=== PATIENT | female | born 1945 | race Caucasian/White ===

== ENCOUNTER 2023-03-09 10:06 | Inpatient (IN) | payer OTHER ==
[~2023-03-09] VITALS: Ht 160 cm; Wt 74.8 kg
[2023-03-09] MEDS ORDERED: DIVA125 PO ×2 (10:47)
[2023-03-09] MEDS ORDERED: ELIQUIS5 M2 PO ×2 (10:47)
[2023-03-09] MEDS ORDERED: FERSU300 PO ×2 (10:47)
[2023-03-09] MEDS ORDERED: LEVE500 PO ×2 (10:48)
[2023-03-09] MEDS ORDERED: GABA300 PO ×2 (10:48)
[2023-03-09] MEDS ORDERED: FURO40 PO ×2 (10:48)
[2023-03-09] MEDS ORDERED: MAGNESIUM OXID500 MG PO ×2 (10:49)
[2023-03-09] MEDS ORDERED: INSULANI ×2 (10:49)
[2023-03-09 10:50] LABS: Source, Urine Straight Cath
[2023-03-09] MEDS ORDERED: QUET100 PO ×2 (10:50)
[2023-03-09] MEDS ORDERED: METO50ER PO ×2 (10:50)
[2023-03-09] MEDS ORDERED: PANT40 PO ×2 (10:50)
[2023-03-09] MEDS ORDERED: POTCHL20ER PO ×2 (10:50)
[2023-03-09] MEDS ORDERED: SERT50 PO ×2 (10:51)
[2023-03-09] MEDS ORDERED: TRAZ50 PO ×2 (10:51)
[2023-03-09 10:52] LABS: Appearance, Urine Cloudy (Clear); Bilirubin, Urine Neg (Neg); Blood, Urine 3+ (Neg); Color, Urine Yellow (P-Yellow); Glucose Qualitative, Urine Neg (Neg); Ketones, Urine Neg (Neg); Leukocyte Esterase, Urine 3+ (Neg); Nitrite, Urine Neg (Neg); Protein, Urine 2+ (Neg); Urobilinogen, Urine NORM (Normal)
[2023-03-09] MEDS ORDERED: Ventolin/Prove6.7 GM INH ×2 (10:53)
[2023-03-09 11:01] LABS: Bacteria Many /hpf; Squamous Epithelial Cells Few /hpf (Few)
[2023-03-09 11:08] LABS: BASOPHILS ABSOLUTE AUTO 0.11 K/mm3 (0.00-0.23); BASOPHILS PERCENT AUTO 1 % (0-2); EOSINOPHILS ABSOLUTE AUTO 0.27 K/mm3 (0.00-0.68); EOSINOPHILS PERCENT AUTO 3 % (0-6); Hematocrit 48.6 % (33.0-51.0); Hemoglobin 15.1 g/dL (11.5-16.0); IMMATURE GRAN ABSOLUTE AUTO 0.02 K/mm3 (0.00-0.10); IMMATURE GRAN PERCENT AUTO 0 % (0-1); LYMPHOCYTES ABSOLUTE AUTO 1.81 K/mm3 (0.84-5.20); LYMPHOCYTES PERCENT AUTO 22 % (21-46); MONOCYTES ABSOLUTE AUTO 0.73 K/mm3 (0.16-1.47); MONOCYTES PERCENT AUTO 9 % (4-13); Mean Corpuscular HGB 24.5 pg (26.0-34.0); Mean Corpuscular HGB Conc 31.1 g/dL (31.5-36.5); Mean Corpuscular Volume 79 fL (80-100); Mean Platelet Volume 9.6 fL (9.1-12.4); NEUTROPHILS ABSOLUTE AUTO 5.41 K/mm3 (1.96-9.15); NEUTROPHILS PERCENT AUTO 65 % (41-73); Platelet Count 318 K/mm3 (150-400); RDW Coefficient Variation 17.3 % (11.7-14.2); RDW Standard Deviation 48.5 fL (35.1-46.3); Red Blood Cell Count 6.16 M/mm3 (3.80-5.20); White Blood Cell Count 8.35 K/mm3 (4.00-11.30)
[2023-03-09 11:23] LABS: U Amphetamine Screen Not Detected; U Barbituate Screen Not Detected; U Benzodiazapine Screen Not Detected; U Buprenorphine Screen Not Detected; U Cannabinoids Screen Not Detected; U Cocaine Screen Not Detected; U Methadone Screen Not Detected; U Methamphetamine Screen Not Detected; U Opiates Screen Not Detected; U Oxycodone Screen Not Detected; U Phencyclidine Screen Not Detected; U Propoxyphene Screen Not Detected
[2023-03-09 11:37] LABS: Chloride, Blood 100 mmol/L (98-108); Potassium, Blood 5.3 mmol/L (3.5-5.5); Sodium, Blood 136 mmol/L (136-145)
[2023-03-09 11:38] LABS: Albumin, Blood 3.9 g/dL (3.4-5.0); Anion Gap 8 mmol/L (6-16); Blood Urea Nitrogen 61 mg/dL (8-24); CO2, Blood 28 mmol/L (21-32); Calcium, Blood 9.9 mg/dL (8.5-10.1); Glucose, Blood 175 mg/dL (70-99)
[2023-03-09 11:39] LABS: Alanine Aminotransfer (ALT/SGP 16 U/L (12-78); Aspartate Aminotrans (AST/SGOT 30 U/L (12-37); Bilirubin, Total 0.5 mg/dL (0.1-1.0); Bun/Creatinine Ratio 24.5 (12.0-20.0); Creatinine, Blood 2.49 mg/dL (0.40-1.00); Globulin, Blood 4.1 g/dL (2.2-4.0); Glomerular Filtration Rate 20 (60-)
[2023-03-09 11:40] LABS: Alk Phos 115 U/L (50-136); Thyroid Stimulating Hormone 0.819 uIU/mL (0.360-4.800)
[2023-03-09 11:43] LABS: Valproic Acid 70.5 ug/mL (50.0-100.0)
[2023-03-09 11:47] LABS: Ethanol (Alcohol), Blood, Med <3 mg/dL
[2023-03-09 21:38] VITALS: BP 129/101
[2023-03-10 04:27] VITALS: BP 120/99
[2023-03-10 06:05] LABS: BASOPHILS ABSOLUTE AUTO 0.11 K/mm3 (0.00-0.23); BASOPHILS PERCENT AUTO 1 % (0-2); EOSINOPHILS ABSOLUTE AUTO 0.24 K/mm3 (0.00-0.68); EOSINOPHILS PERCENT AUTO 3 % (0-6); Hematocrit 41.7 % (33.0-51.0); IMMATURE GRAN ABSOLUTE AUTO 0.02 K/mm3 (0.00-0.10); IMMATURE GRAN PERCENT AUTO 0 % (0-1); LYMPHOCYTES ABSOLUTE AUTO 1.65 K/mm3 (0.84-5.20); LYMPHOCYTES PERCENT AUTO 20 % (21-46); MONOCYTES ABSOLUTE AUTO 0.64 K/mm3 (0.16-1.47); MONOCYTES PERCENT AUTO 8 % (4-13); Mean Corpuscular HGB 24.5 pg (26.0-34.0); Mean Corpuscular HGB Conc 31.2 g/dL (31.5-36.5); Mean Corpuscular Volume 79 fL (80-100); Mean Platelet Volume 9.4 fL (9.1-12.4); NEUTROPHILS ABSOLUTE AUTO 5.55 K/mm3 (1.96-9.15); NEUTROPHILS PERCENT AUTO 68 % (41-73); Platelet Count 248 K/mm3 (150-400); RDW Standard Deviation 47.8 fL (35.1-46.3); White Blood Cell Count 8.21 K/mm3 (4.00-11.30)
[2023-03-10 06:35] LABS: Albumin, Blood 3.4 g/dL (3.4-5.0); Bilirubin, Total 0.4 mg/dL (0.1-1.0); Bun/Creatinine Ratio 30.4 (12.0-20.0); Calcium, Blood 8.8 mg/dL (8.5-10.1); Creatinine, Blood 1.58 mg/dL (0.40-1.00); Globulin, Blood 3.3 g/dL (2.2-4.0); Magnesium, Blood 2.6 mg/dL (1.6-2.4); Phosphorus, Blood 3.5 mg/dL (2.5-4.9); Potassium, Blood 4.1 mmol/L (3.5-5.5); Total Protein, Blood 6.7 g/dL (6.4-8.2)
--- NOTE | 2023-03-10 07:11 | NUR ---
SHIFT SUMMARY/ADMISSION NOTE ASSUMED CARE OF PATIENT AT 21:30 FOLLOWING REPORT FROM ED. UNABLE TO ORIENT PATIENT TO UNIT DUE TO AMS. IS MOSTLY A/O TO SELF, CONFUSED/AGITATED, WITH INTERMITTENT BRIEF PERIODS OF CLARITY. BED ALARM ON AND FREQUENT ROUNDING FOR PATIENT SAFETY. PROVIDER NOTIFIED OF CONFUSION/AGITATION. NEW ORDERS RECEIVED FOR IM ZYPREXA, FIRST DOSE NOT EFFECTIVE, ADDITIONAL GIVEN PER ORDER, FAIR RESULTS, REDUCED AGITATION, CONTINUES TO BE IMPULSIVE, WILL NOT ALLOW TELE LEADS TO REMAIN ON. DUE TO FREQUENT PULLING AT IV AND TELE LINES, IMPULSIVE BEHAVIORS, LACK OF SAFETY AWARENESS, PATIENT TO BE MOVED TO HIGH ACUITY UNIT RM 348. INFORMED ONCOMING SHIFT OF PENDING TRANSFER.
[2023-03-10 08:02] VITALS: BP 120/86
--- NOTE | 2023-03-10 09:59 | NUR ---
TRANSFER NOTE- BEDSIDE REPORT COMPLETED WITH NIGHT RN, PER REPORT PT TO TRANSFER TO BACK [facility] BED WHEN AVAILABLE. PT TAKEN BY ADDITIONAL STAFF TO THE BACK [facility] PRIOR TO REPORT WITH RN. REPORT COMPLETED AT THE BEDSIDE. PT IN BED, CALLLING OUT, BEHAVIORAL ISSUES CONTINUE. RECIEVING RN IS AWARE. MORNING MEDS NOT GIVEN, ASSESSMENT NOT COMPLETED.
[2023-03-10 17:31] LABS: Hemoglobin 12.8 g/dL (11.5-16.0)
[2023-03-10 17:32] VITALS: BP 130/84
--- NOTE | 2023-03-10 20:04 | NUR ---
SHIFT SUMMARY: ARIELLE IS A&0X1-2. VSS, MEDIA MARKETING SPECIALIST REPORTED THAT PT'S HR INCREASED TO THE 150'S TWICE THIS SHIFT WHILE PT WAS ATTEMPTING TO GET OOB, REPORTED TO HOSPITALIST, PT RESTARTED ON HOME MEDICATION METOPROLOL. PT IS TOLERATING PO INTAKE WELL, SITTING UP FOR SAFETY, PILLS WHOLE, ONE AT A TIME IN APPLESAUCE. TELE AND BED ALARM IN PLACE. IV TO R FOREARM PATENT, SALINE LOCKED. PT PULLED IV'S X 2 THIS SHIFT. SHE HAS COMPLAINED OF BACK AND LEG PAIN, MEDICATED PER AUG WITH NO IMPROVEMENT THIS SHIFT. RN FROM [facility] (PT'S RESIDENCE) UPDATED THIS RN THAT PT HAD A LUMBAR FRACTURE AT HER PREVIOUS ADMISSION AT ANOTHER HOSPITAL AND HAD BEEN RECEIVING OXYCODONE 5 MG THERE. HOWEVER, NO ORDER WAS GIVEN TO [facility] ON DISCHARGE. K-PAD PROVIDED FOR COMFORT. ATTENDS IN PLACE FOR INCONTINECE, PT DID UTILIZE THE BED ARMIJO LATE THIS SHIFT. SHE IS LYING IN BED WITH THE CALL LIGHT IN REACH. REPORT WAS GIVEN TO ROOF TRUSS BUILDER RN.
[2023-03-10 20:23] VITALS: BP 95/76
[2023-03-11 00:33] LABS: BASOPHILS ABSOLUTE AUTO 0.06 K/mm3 (0.00-0.23); BASOPHILS PERCENT AUTO 1 % (0-2); EOSINOPHILS ABSOLUTE AUTO 0.18 K/mm3 (0.00-0.68); EOSINOPHILS PERCENT AUTO 3 % (0-6); Hematocrit 42.7 % (33.0-51.0); IMMATURE GRAN ABSOLUTE AUTO 0.01 K/mm3 (0.00-0.10); IMMATURE GRAN PERCENT AUTO 0 % (0-1); LYMPHOCYTES ABSOLUTE AUTO 1.16 K/mm3 (0.84-5.20); LYMPHOCYTES PERCENT AUTO 20 % (21-46); MONOCYTES ABSOLUTE AUTO 0.42 K/mm3 (0.16-1.47); MONOCYTES PERCENT AUTO 7 % (4-13); Mean Corpuscular HGB 24.3 pg (26.0-34.0); Mean Corpuscular HGB Conc 30.4 g/dL (31.5-36.5); Mean Corpuscular Volume 80 fL (80-100); NEUTROPHILS ABSOLUTE AUTO 4.12 K/mm3 (1.96-9.15); NEUTROPHILS PERCENT AUTO 69 % (41-73); Platelet Count 220 K/mm3 (150-400); RDW Coefficient Variation 16.8 % (11.7-14.2); RDW Standard Deviation 48.5 fL (35.1-46.3); Red Blood Cell Count 5.36 M/mm3 (3.80-5.20); White Blood Cell Count 5.95 K/mm3 (4.00-11.30)
[2023-03-11 00:49] LABS: Albumin, Blood 3.4 g/dL (3.4-5.0); Anion Gap 5 mmol/L (6-16); Blood Urea Nitrogen 36 mg/dL (8-24); Bun/Creatinine Ratio 26.1 (12.0-20.0); CO2, Blood 27 mmol/L (21-32); Chloride, Blood 108 mmol/L (98-108); Creatinine, Blood 1.38 mg/dL (0.40-1.00); Glomerular Filtration Rate 40 (60-); Glucose, Blood 197 mg/dL (70-99); Magnesium, Blood 2.1 mg/dL (1.6-2.4); Phosphorus, Blood 2.6 mg/dL (2.5-4.9); Potassium, Blood 4.2 mmol/L (3.5-5.5); Sodium, Blood 140 mmol/L (136-145)
--- NOTE | 2023-03-11 04:19 | NUR ---
SHIFT SUMMARY ARIELLE IS ALERT AND ONLY ORIENTED TO SELF THIS SHIFT. HE HAS BEEN LABILE AND IMPULSIVE, AFTER SEVERAL ATTEMPTS AT REDIRECTING HER, A PREMA VEST RESTRAINT WAS PLACED TO PREVENT FURTHER ATTEMPTS TO GET OUT OF BED. PATIENT HAS BEEN AWAKE MOST OF THE SHIFT WITH INTERMITTENT HALLUCINATIONS AND FREQUENT CRYING. HOSPITALIST CALLED IN REGARD TO UNCONTROLLED PATIENT PAIN, TWO DOSE PRN PO OXYCODONE ORDERED, ONE DOSE GIVEN TO LIMITED EFFECT. NO ACUTE CHANGES TO CONDITION TONIGHT. PT IS RESTING IN BED RESTRAINED BY PREMA WITH THE CALL LIGHT IN REACH AND THE BED ALARM ON.
[2023-03-11 05:16] VITALS: BP 156/99
[2023-03-11 07:34] VITALS: BP 138/92
[2023-03-11 08:56] LABS: Hematocrit 42.5 % (33.0-51.0); Hemoglobin 13.1 g/dL (11.5-16.0)
[2023-03-11 16:06] VITALS: BP 143/55
[2023-03-11] MEDS ORDERED: LACT PO ×2 (16:55)
[2023-03-11] MEDS ORDERED: CEPH500 PO ×2 (16:55)
--- NOTE | 2023-03-11 16:58 | NUR ---
SHIFT SUMMARY: PATIENT IS AWAKE, ALERT, AND ORIENTED TO SELF ONLY. PATIENT DENIES CP/PRESSURE, SOB, N/V AND DIZZINESS. ON TELE, A-FLUTTER HR IN THE 110'S BPM. RA. PATIENT IS INCONTINENCE OF BLADDER, PABLO CARE AND ATTENDS CHANGED T/O SHIFT. PREMA VEST RESTRAINT WSA DC'D AT 1400. PATIENT IS CALM, PLEASANT, COOPERATIVE c CARE AND REDIRECTABLE. PATIENT IS EATING AND DRINKING WELL. RECEIVED SCHEDULED IV ABX AND PO MEDS PER EMAR. VITAL SIGNS REVIEWED. BED ALARM ON FOR SAFETY. CALL LIGHT IN REACH. PATIENT IS DISCHARGE TO [facility]. [facility] INSTRU[facility]. EDUCATE PATIENT REGARDING ADMITTING DX'S OF SEPSIS D/T UTI, S/S, TX, PABLO CARE, MEDS TO HOME AND SELF CARE. PATIENT VERBALIZED UNDERSTANDING AND NO FURTHER QUESTIONS. RX WAS FAXED TO [facility] IN [place]. RIDES WAS ARRANGED BY [facility] SEWING MACHINE OPERATOR PAPER BAGS AND EXPECTED GOLF STARTER AND RANGER TIME AT 1830, 03/11/23, PER [employer], ANITA. PATIENT IN BED AWAITING FOR RIDES.
== END 2023-03-11 19:30 | DRG 871 ==
LOC: ER 10:06 → ERHOLD 15:30 → MEDS 15:30
PROVIDERS: Family Medicine; Student in an Organized Health Care Education/Training Program; ADMIT Internal Medicine
DX: A41.9 Sepsis, unspecified organism (principal); G93.41 Metabolic encephalopathy; N39.0 Urinary tract infection, site not specified; N17.9 Acute kidney failure, unspecified; I48.91 Unspecified atrial fibrillation; Z66 Do not resuscitate; N18.9 Chronic kidney disease, unspecified; E11.22 Type 2 diabetes mellitus with diabetic chronic kidney disease; F03.90 Unspecified dementia, unspecified severity, without behavioral disturbance, psychotic disturbance, mood disturbance, and anxiety; B96.20 Unspecified Escherichia coli [E. coli] as the cause of diseases classified elsewhere; G89.4 Chronic pain syndrome; G40.909 Epilepsy, unspecified, not intractable, without status epilepticus; K21.9 Gastro-esophageal reflux disease without esophagitis; Z88.8 Allergy status to other drugs, medicaments and biological substances; Z79.899 Other long term (current) drug therapy; Z79.51 Long term (current) use of inhaled steroids; Z79.01 Long term (current) use of anticoagulants; Z79.4 Long term (current) use of insulin
CPT/HCPCS: 36415; 51701; 80053; 80069; 80164; 80177; 81001; 82140; 82947; 83605; 83735; 84100; 84443; 85014; 85018; 85025; 87077; 87086; 87186; 93005; 93010; 94760; 96361-59; 96372-59; 96374-59; 99285-25; A9270; J0696; J1650; J1815; J7030

== ENCOUNTER 2023-03-16 10:14 | Emergency (ER) | payer OTHER ==
[~2023-03-16] VITALS: Ht 177.8 cm; Wt 95.2 kg
[~2023-03-16 10:14] MED LIST: CEPH500 PO; DIVA125 PO; ELIQUIS5 M2 PO; FERSU300 PO; FURO40 PO; GABA300 PO; INSULANI; LACT PO; LEVE500 PO; MAGNESIUM OXID500 MG PO; METO50ER PO; PANT40 PO; POTCHL20ER PO; QUET100 PO; SERT50 PO; TRAZ50 PO; Ventolin/Prove6.7 GM INH
[2023-03-16 11:17] LABS: BASOPHILS ABSOLUTE AUTO 0.08 K/mm3 (0.00-0.23); BASOPHILS PERCENT AUTO 1 % (0-2); EOSINOPHILS ABSOLUTE AUTO 0.27 K/mm3 (0.00-0.68); EOSINOPHILS PERCENT AUTO 5 % (0-6); Hematocrit 43.6 % (33.0-51.0); Hemoglobin 13.4 g/dL (11.5-16.0); IMMATURE GRAN ABSOLUTE AUTO 0.01 K/mm3 (0.00-0.10); IMMATURE GRAN PERCENT AUTO 0 % (0-1); LYMPHOCYTES ABSOLUTE AUTO 1.21 K/mm3 (0.84-5.20); LYMPHOCYTES PERCENT AUTO 20 % (21-46); MONOCYTES ABSOLUTE AUTO 0.61 K/mm3 (0.16-1.47); MONOCYTES PERCENT AUTO 10 % (4-13); Mean Corpuscular HGB 24.5 pg (26.0-34.0); Mean Corpuscular HGB Conc 30.7 g/dL (31.5-36.5); Mean Corpuscular Volume 80 fL (80-100); Mean Platelet Volume 10.1 fL (9.1-12.4); NEUTROPHILS ABSOLUTE AUTO 3.85 K/mm3 (1.96-9.15); NEUTROPHILS PERCENT AUTO 64 % (41-73); Platelet Count 192 K/mm3 (150-400); RDW Coefficient Variation 17.3 % (11.7-14.2); RDW Standard Deviation 49.9 fL (35.1-46.3); Red Blood Cell Count 5.47 M/mm3 (3.80-5.20); White Blood Cell Count 6.03 K/mm3 (4.00-11.30)
[2023-03-16 11:47] LABS: Bun/Creatinine Ratio 18.1 (12.0-20.0); Creatinine, Blood 1.66 mg/dL (0.40-1.00); Potassium, Blood 4.6 mmol/L (3.5-5.5)
[2023-03-16 13:43] VITALS: BP 142/78
== END 2023-03-16 13:49 | disposition home or self-care (01) ==
LOC: ER 10:14
PROVIDERS: Emergency Medicine
DX: I95.9 Hypotension, unspecified (principal); N39.0 Urinary tract infection, site not specified; F03.90 Unspecified dementia, unspecified severity, without behavioral disturbance, psychotic disturbance, mood disturbance, and anxiety; G89.4 Chronic pain syndrome; E11.22 Type 2 diabetes mellitus with diabetic chronic kidney disease; N18.9 Chronic kidney disease, unspecified; Z88.8 Allergy status to other drugs, medicaments and biological substances; Z79.01 Long term (current) use of anticoagulants; Z79.51 Long term (current) use of inhaled steroids; Z79.899 Other long term (current) drug therapy; Z79.4 Long term (current) use of insulin
CPT/HCPCS: 80048; 85025; 99285

== ENCOUNTER 2023-03-17 13:55 | Emergency (ER) | payer OTHER ==
[~2023-03-17] VITALS: Ht 152.4 cm; Wt 72.6 kg
[2023-03-17 14:21] LABS: BASOPHILS ABSOLUTE AUTO 0.06 K/mm3 (0.00-0.23); BASOPHILS PERCENT AUTO 1 % (0-2); EOSINOPHILS ABSOLUTE AUTO 0.19 K/mm3 (0.00-0.68); EOSINOPHILS PERCENT AUTO 4 % (0-6); Hematocrit 42.5 % (33.0-51.0); Hemoglobin 13.1 g/dL (11.5-16.0); IMMATURE GRAN ABSOLUTE AUTO 0.02 K/mm3 (0.00-0.10); IMMATURE GRAN PERCENT AUTO 0 % (0-1); LYMPHOCYTES ABSOLUTE AUTO 1.11 K/mm3 (0.84-5.20); LYMPHOCYTES PERCENT AUTO 24 % (21-46); MONOCYTES ABSOLUTE AUTO 0.46 K/mm3 (0.16-1.47); MONOCYTES PERCENT AUTO 10 % (4-13); Mean Corpuscular HGB 24.4 pg (26.0-34.0); Mean Corpuscular HGB Conc 30.8 g/dL (31.5-36.5); Mean Corpuscular Volume 79 fL (80-100); Mean Platelet Volume 9.2 fL (9.1-12.4); NEUTROPHILS ABSOLUTE AUTO 2.71 K/mm3 (1.96-9.15); NEUTROPHILS PERCENT AUTO 60 % (41-73); Platelet Count 181 K/mm3 (150-400); RDW Coefficient Variation 17.2 % (11.7-14.2); RDW Standard Deviation 49.7 fL (35.1-46.3); Red Blood Cell Count 5.36 M/mm3 (3.80-5.20); White Blood Cell Count 4.55 K/mm3 (4.00-11.30)
[2023-03-17 14:45] LABS: Albumin, Blood 3.2 g/dL (3.4-5.0); Bilirubin, Total 0.3 mg/dL (0.1-1.0); Bun/Creatinine Ratio 18.7 (12.0-20.0); Calcium, Blood 8.9 mg/dL (8.5-10.1); Creatinine, Blood 1.5 mg/dL (0.40-1.00); Globulin, Blood 3.3 g/dL (2.2-4.0); Potassium, Blood 4.2 mmol/L (3.5-5.5); Total Protein, Blood 6.5 g/dL (6.4-8.2)
[2023-03-17 15:00] VITALS: BP 104/77
== END 2023-03-17 20:53 | disposition home or self-care (01) ==
LOC: ER 13:55
PROVIDERS: Student in an Organized Health Care Education/Training Program
DX: F03.90 Unspecified dementia, unspecified severity, without behavioral disturbance, psychotic disturbance, mood disturbance, and anxiety (principal); R45.1 Restlessness and agitation; E11.22 Type 2 diabetes mellitus with diabetic chronic kidney disease; N18.9 Chronic kidney disease, unspecified; G40.909 Epilepsy, unspecified, not intractable, without status epilepticus; Z88.8 Allergy status to other drugs, medicaments and biological substances
CPT/HCPCS: 80053; 85025; 99285; A9270

== ENCOUNTER 2023-03-30 13:29 | Inpatient (IN) | payer MEDICARE, OTHER ==
[~2023-03-30] VITALS: Ht 154.9 cm; Wt 77.8 kg
[2023-03-30 14:20] LABS: Source, Urine Straight Cath
[2023-03-30 14:28] LABS: Appearance, Urine Hazy (Clear); Bilirubin, Urine Neg (Neg); Blood, Urine 3+ (Neg); Color, Urine Yellow (P-Yellow); Glucose Qualitative, Urine Neg (Neg); Ketones, Urine Neg (Neg); Leukocyte Esterase, Urine 3+ (Neg); Nitrite, Urine Pos (Neg); Protein, Urine Neg (Neg); Urobilinogen, Urine NORM (Normal)
[2023-03-30 14:59] LABS: Bacteria Many /hpf; Squamous Epithelial Cells Not Seen /hpf (Few); White Blood Cells, Urine 25-50 /hpf (0-5)
[2023-03-30] MEDS ORDERED: CEFP200 PO ×2 (15:17→17:47)
[2023-03-30 16:25] LABS: BASOPHILS ABSOLUTE AUTO 0.11 K/mm3 (0.00-0.23); BASOPHILS PERCENT AUTO 2 % (0-2); EOSINOPHILS ABSOLUTE AUTO 0.13 K/mm3 (0.00-0.68); EOSINOPHILS PERCENT AUTO 2 % (0-6); Hematocrit 45.2 % (33.0-51.0); Hemoglobin 14.2 g/dL (11.5-16.0); IMMATURE GRAN ABSOLUTE AUTO 0.01 K/mm3 (0.00-0.10); IMMATURE GRAN PERCENT AUTO 0 % (0-1); LYMPHOCYTES ABSOLUTE AUTO 1.62 K/mm3 (0.84-5.20); LYMPHOCYTES PERCENT AUTO 24 % (21-46); MONOCYTES ABSOLUTE AUTO 0.49 K/mm3 (0.16-1.47); MONOCYTES PERCENT AUTO 7 % (4-13); Mean Corpuscular HGB 24.7 pg (26.0-34.0); Mean Corpuscular HGB Conc 31.4 g/dL (31.5-36.5); Mean Corpuscular Volume 79 fL (80-100); Mean Platelet Volume 9.1 fL (9.1-12.4); NEUTROPHILS ABSOLUTE AUTO 4.49 K/mm3 (1.96-9.15); NEUTROPHILS PERCENT AUTO 66 % (41-73); Platelet Count 229 K/mm3 (150-400); RDW Coefficient Variation 18.8 % (11.7-14.2); RDW Standard Deviation 50.9 fL (35.1-46.3); Red Blood Cell Count 5.75 M/mm3 (3.80-5.20); White Blood Cell Count 6.85 K/mm3 (4.00-11.30)
[2023-03-30] MEDS ORDERED: NYSTOP15 GM TOP (16:37)
[2023-03-30] MEDS ORDERED: Cyclobenzaprine5 MG PO (16:38)
[2023-03-30] MEDS ORDERED: DULCOLAX400 MG/5 M PO (16:39)
[2023-03-30] MEDS ORDERED: Acetaminophen325 M1 PO (16:40)
[2023-03-30] MEDS ORDERED: SYMBICORT 160-4.6 GM INH (16:42)
[2023-03-30 16:51] LABS: Albumin, Blood 3.6 g/dL (3.4-5.0); Bilirubin, Total 0.3 mg/dL (0.1-1.0); Bun/Creatinine Ratio 25.4 (12.0-20.0); Calcium, Blood 9.4 mg/dL (8.5-10.1); Creatinine, Blood 1.93 mg/dL (0.40-1.00); Globulin, Blood 3.6 g/dL (2.2-4.0); Potassium, Blood 4.4 mmol/L (3.5-5.5); Total Protein, Blood 7.2 g/dL (6.4-8.2)
[2023-03-30] MEDS ORDERED: METF500 PO (16:52)
[2023-03-30] MEDS ORDERED: LOPE2C PO (16:53)
[2023-03-30] MEDS ORDERED: LEVE500 PO ×2 (16:54→16:58)
[2023-03-30] MEDS ORDERED: SENN187 PO (16:56)
[2023-03-30] MEDS ORDERED: ONDA4ODT MM (16:59)
[2023-03-30] MEDS ORDERED: PROC5 PO (17:02)
[2023-03-30] MEDS ORDERED: OXYC5 PO (17:45)
[2023-03-30 20:33] LABS: Base Excess Venous 6.2 mmol/L; Bicarbonate Venous 27.8 mmol/L (24.0-30.0); PCO2 Venous 54.1 mmHg (38-42); pH Blood Venous 7.37 (7.34-7.37)
[2023-03-30 20:51] LABS: SARS-Cov-2 (COVID-19) PCR, MMC NEGATIVE (NEGATIVE)
[2023-03-30 21:35] VITALS: BP 114/93
--- NOTE | 2023-03-30 21:58 | NUR ---
ASSUMPTION OF CARE/TRANSFER NOTE PT TRANSFERRED TO PCU AT 2114. PT NOT OPENING EYES. RESPONDS OCCASIONALLY TO QUESTIONS. YELLING OUT. PT PARANOID ABOUT THIS RN GIVING WATER. REFUSED TO TAKE PO PILLS. SBP 110'S AT THIS TIME. NS INFUSING PER EMAR. PT BEGAN HITTING AND KICKING STAFF. MITTS PLACED ON PATIENT, HOWEVER, PT BROKE MITTS AFTER 2 MINUTES OF HAVING THEM ON. PT PULLING AT LINES. CALL PLACED TO MD BEAL REGARDING AGGITATION. MD BEAL WITH ORDER FOR IM ZYPREXA; GIVEN PER EMAR. PT CONTINUES TO PULL AT LINES, YELL OUT, AND BE PHYSICAL WITH STAFF AT THIS TIME. 1 ON 1 SITTER AT BEDSIDE. OTHER VITALS STABLE. PT ON RA. BED IN LOWEST POSITION AND CALL LIGHT WITHIN REACH.
[2023-03-30 22:03] VITALS: BP 145/106
[2023-03-30 23:00] VITALS: BP 106/39
[2023-03-30 23:14] VITALS: BP 112/81
[2023-03-31] VITALS (90 sets, daily range): BP systolic 61–182; BP diastolic 33–142
--- NOTE | 2023-03-31 01:15 | NUR ---
PATIENT UPDATE PATIENT CONTINUED TO KICK/HIT STAFF MEMBERS, PULL AT LINES, AND ATTEMPT TO GET OOB, AND INTERFERING WITH CARE. PT NOT DIRECTABLE. PT PLACED IN SOFT BILATERAL WRIST RESTRAINTS AT 2330, CALL PLACED TO MD BEAL AT 2339 FOR ORDER. MD ALSO WITH ORDER FOR ANOTHER 5MG IM DOSE OF ZYPREXA; GIVEN PER EMAR. SINCE THAT ADMINISTRATION PT HAS ALSO BEEN GIVEN ANOTHER DOSE OF IV HALDOL PER EMAR. PT CONTINUES TO YELL, WITH CONTINUED ABOVE LISTED BEHAVIORS. CONTINUES TO NOT BE REDIRECTABLE. RESTRAINTS REMAIN IN PLACE. SITTER AT BEDSIDE. VITALS REMAIN STABLE. PT BLADDER SCANNED SHOWING 77MLS OF URINE. PUREWICK REMAINS IN PLACE. BED IN LOWEST POSITION, BED ALARM ON, CALL LIGHT WITHIN REACH.
--- NOTE | 2023-03-31 02:56 | NUR ---
PATIENT UPDATE 0130: THIS RN CALLED MD BEAL TO REPORT THAT PT HAD BEEN MEDICATED AGAIN WITH IM ZYPREXA AND IV HALDOL WITH NO RELIEF FOR PATIENT. PATIENT CONTINUES TO YELL AND THRASH IN BED. THIS RN REPORTED THAT PATIENT APPEARED TO BE IN PAIN AND REPORTED TO MD BEAL WITH WHAT PATIENT TAKES AT HOME. MD BEAL WITH ORDER FOR IV DILAUDID 0150: THIS RN DILUTED WITH NS SYRINGE AND GAVE OVER 2 MINUTES AT APPROXIMATELY 0150. AT THIS TIME VITALS WERE STABLE. PT REPORTED IMMEDIATE RELIEF OF PAIN. AFTER ANOTHER 1-2 MINUTES PATIENT'S SPO2 DROPPED TO 70-80'S. PT'S SBP DROPPED TO 50-60'S. PT STILL RESPONDING TO VERBAL STIMULI BUT LETHARGIC. PT PLACED ON 4L VIA NC. PT NOT ON TELE BUT SPO2 SHOWING HR 80'S. 0206: NARCAN WAS ADMINISTERRED PER EMAR AT 0206. PT BECAME ALERT QUICKLY AFTER ADMINISTRATION AND BEGAN YELLING SHE PREVIOUSLY WAS; SEE PREVIOUS NOTES. SBP 120-130'S. SPO2 >92% ON 2L VIA NC. RR EVEN AND UNLABORED. HR REMAINS UNCHANGED. CALL PLACED TO MD BEAL TO REPORT EVENT. MD BEAL WITH ORDERS FOR LIDOCAINE PATCH FOR BACK PAIN AND TELEMETRY TO BE PLACED ON PATIENT. MD BEAL VERBALIZED TO CONTINUE NARCAN NEEDED. 0256: AT TIME OF WRITING THIS NOTE PT IS LETHARGIC BUT RESPONDING TO VERBAL STIMULI. SPO2 >92% ON 2L VIA NC. RR 12-14. SBP 90-100'S. MAP >65. NS INFUSING PER EMAR. PT NOW ON TELE, SHOWING AFIB WITH HR 70-80'S; PT HAS HX OF AFIB. NARCAN AT BEDSIDE. PT REMAINS IN BILATERAL SOFT WRIST RESTRAINTS. SEE ASSESSMENTS. BED IN LOWEST POSITION AND CALL LIGHT WITHIN REACH.
--- NOTE | 2023-03-31 03:45 | NUR ---
NARCAN PATIENT GIVEN SECOND DOSE OF NARCAN AT APPROXIMATELY 0320. SBP 70'S PRIOR TO ADMINISTRATION. PT CONTINUES TO RESPOND TO VERBAL STIMULI BUT IS LETHARGIC. AFTER ADMINISTRATION SBP 140-150'S. AFIB ON MONITOR WITH HR 90'S. SPO2 >92% ON 2L VIA NC. PT MOVING ALL EXTREMETIES AND MOANING. MOVING SELF IN BED. RESTRAINTS REMAIN IN PLACE. BED IN LOWEST POSITION, BED ALARM ON, CALL LIGHT WITHIN REACH. SITTER IN ROOM.
[2023-03-31 04:14] LABS: BASOPHILS ABSOLUTE AUTO 0.13 K/mm3 (0.00-0.23); BASOPHILS PERCENT AUTO 2 % (0-2); EOSINOPHILS ABSOLUTE AUTO 0.14 K/mm3 (0.00-0.68); EOSINOPHILS PERCENT AUTO 2 % (0-6); Hematocrit 41.6 % (33.0-51.0); IMMATURE GRAN ABSOLUTE AUTO 0.02 K/mm3 (0.00-0.10); IMMATURE GRAN PERCENT AUTO 0 % (0-1); LYMPHOCYTES ABSOLUTE AUTO 2.06 K/mm3 (0.84-5.20); LYMPHOCYTES PERCENT AUTO 30 % (21-46); MONOCYTES ABSOLUTE AUTO 0.55 K/mm3 (0.16-1.47); MONOCYTES PERCENT AUTO 8 % (4-13); Mean Corpuscular HGB 24.9 pg (26.0-34.0); Mean Corpuscular HGB Conc 31.3 g/dL (31.5-36.5); Mean Corpuscular Volume 80 fL (80-100); Mean Platelet Volume 9.3 fL (9.1-12.4); NEUTROPHILS ABSOLUTE AUTO 3.87 K/mm3 (1.96-9.15); NEUTROPHILS PERCENT AUTO 57 % (41-73); Platelet Count 208 K/mm3 (150-400); RDW Coefficient Variation 18.1 % (11.7-14.2); RDW Standard Deviation 51.8 fL (35.1-46.3); Red Blood Cell Count 5.22 M/mm3 (3.80-5.20); White Blood Cell Count 6.77 K/mm3 (4.00-11.30)
--- NOTE | 2023-03-31 04:23 | NUR ---
NARCAN 3RD DOSE OF NARCAN ADMINISTERRED AT APPROXIMATELY 0418 FOR DECREASED LOC AND BP. SBP NOW 150'S. PT MORE RESPONSIVE TO VERBAL STIMULI AND MOVING ALL EXTREMETIES NOW. SEE PREVIOUS NOTES
[2023-03-31 04:44] LABS: Bun/Creatinine Ratio 25.2 (12.0-20.0); Calcium, Blood 8.6 mg/dL (8.5-10.1); Creatinine, Blood 1.59 mg/dL (0.40-1.00); Potassium, Blood 4.3 mmol/L (3.5-5.5)
--- NOTE | 2023-03-31 05:41 | NUR ---
SHIFT SUMMARY/PATIENT UPDATE PATIENT GIVEN 4TH DOSE OF NARCAN AT 0533; AGAIN THE PATIENT PRESENTED WITH DECREASED LOC AND LOW BP WITH SBP 70'S. PATIENT REMAINS ON 2L VIA NC WITH SPO2 >92%. AFIB WITH HR 80'S. RR 14. BP NOW 117/95. PT MOANING/YELLING, MOVING ALL EXTREMETIES, AND PULLING AT RESTRAINTS AT THIS TIME, APPROXIMATELY 10 MINUTES AFTER NARCAN WAS ADMINISTERRED. SEE PREVIOUS NOTES. SITTER REMAINS AT BEDSIDE. PUREWICK IN PLACE. NS INFUSING PER EMAR. REPOSITIONING Q2HRS. PT EASILY AGGITATED. NOT FOLLOWING DIRECTIONS. REDUCING STIMULI NEEDED TO HELP RELAX PATIENT. SEE NOTES/ASSESSMENTS. BED IN LOWEST POSITION AND CALL LIGHT WITHIN REACH. THIS RN WILL REPORT TO ONCOMING DAYSHIFT RN.
--- NOTE | 2023-03-31 07:35 | NUR ---
OBTAINED BEDSIDE REPORT FROM OUTREACH WORKER RN. BP NOTED TO BE LOW 80'S SYSTOLIC. PATIENT SLEEPING HEAVILY AND NOT RESPONDING TO TOUCH AND HER NAME SPOKEN LOUDLY. 5TH DOSE OF NARCAN ADMINISTERED IV, SEE EMAR. BP RESPONDED, UP TO 130 SYSTOLIC. PATIENT STIRRING PERIODICALLY AT THIS TIME. MOANING AT TIMES. BILAT SOFT WRIST RETRAINTS IN PLACE, CLINICAL SITTER IN ROOM. WILL CONTINUE TO MONITOR. MALU BOWMAN, BIOINFORMATICS SUPPORT SPECIALIST UPDATED.
--- NOTE | 2023-03-31 11:56 | NUR ---
AM SUMMARY/TRANSFER TO ICU LETHARGIC, WAKES TO LOUD VOICE AND TOUCH TO SHOULDERS. ABLE TO SAY HER NAME, UNABLE TO ANSWER ANY OTHER ORIENTATION QUESTIONS. CONFUSED, AGITATED DURING NIGHT. PULLING AT LINES. BILAT SOFT WRIST RESTRAINTS IN PLACE. NPO DUE TO MENTATION. IV FLUID RUNNING AT 125/HR. TELE NSR 80'S. SPO2 >92% ON 2L. NORMOTHERMIC. HYPOTENSIVE DURING REPORT 80'S SYSTOLIC. PATIENT HAD BEEN GIVEN ZYPREXA X2, HALDOL X2, AND 1 MG DILAUDID DURING NIGHT. BECOME SOMNOLENT AND HYPOTENSIVE, THIS WAS THOUGHT TO BE OPIOID SEDATION, NARCAN WAS INITIATED DURING NIGHT X4 DOSES. PATIENT CONTINUED TO BECOME LETHARGIC AND HYPOTENSIVE WHEN NARCAN WOULD WEAR OFF. NARCAN REPEATED FOR 5TH TIME THIS AM WITH SIMILAR RESPONSE. HYPOTENSION IS LIKELY SECONDARY TO SEPSIS AND NOT NARCOTIC AT THIS TIME. URINE OUTPUT NOTED TO BE ZERO SINCE ADMISSION, BLADDER SCAN REVEALED 167 DESPITE AGGRESSIVE HYDRATION WITH 3-[address] NGUYEN AND UPDATED. DR NGUYEN CALLED DAUGHTER. PLAN IS TO TRANSFER TO ICU AND START PRESSORS TO SUPPORT BLOOD PRESSURE. REPORT CALLED TO DALI BOYER IN ICU. UPDATE CALLED TO DAUGHTER "NATALIE". PATIENT TRANSFERRED TO ICU ROOM 1 IN HER BED AT 1100.
--- NOTE | 2023-03-31 12:16 | NUR ---
ASSUMPTION OF CARE PT TO ICU AROUND 1118 VIA HOSPITAL BED. PT TRANSFERED TO ICU BED VIA SLIDER SHEET. PT ABLE TO ANSWER SOME QUESTIONS SUCH HER NAME AND , ABLE TO FOLLOW SOME COMMANDS. PT MOANS OUT, SPEECH IS MUMBLED. HR 80-90'S AFIB, BP STABLE, MAP > 65, SBP 80'S-130'S. NS INFUSING AT 125MLS/HR. LUNG SOUNDS COARSE, PT ON RA, OXYGEN SATURATION >95%. ABDOMEN SOFT NONTENDER, PT DENIES PAIN. PUREWICK IN PLACE WITH NO OUTPUT, BLADDER SCANNER SHOWS 520MLS. PIV TO LAC INFUSING. CBG CHECKED, RESULTED AT 53, DR. QUIÑONES NOTIFIED, ORDER RECEIVED FOR 25 OF D50 GIVEN, CBG RECHECKED, RESULTED AT 124. BED IN LOWEST POSITION, CLINICAL SITTER AT THE BEDISDE. CARE CONTINUES.
--- NOTE | 2023-03-31 18:13 | NUR ---
SHIFT SUMMARY PT RESTING IN BED, ALERT, PT ABLE TO ANSWER SOME QUESTIONS. PT CRIES OUT, SPEECH IS MUMBLED AND CONFUSED. HR 90-100'S A FIB, MAP > 65. PT ON RA, OXYGEN SATURATION > 95%. PT COMPLAINING OF PAIN, DR. NGUYEN NOTIFIED, ORDER RECEIVED FOR 12.5 OF FENTANYL, PT MEDICATED WITH GOOD RESULT. PT STRAIGHT CATHED TWICE WITH GOOD OUTPUT. BILATERAL SOFT WRIST RESTRAINTS IN PLACE DUE TO PATIENT PULLING AT LINES AND CORDS. PIV TO LAC WITH NS INFUSING AT 125MLS/HR. BED IN LOWEST POSITION, CLINICAL SITTER AT THE BEDSIDE.
--- NOTE | 2023-03-31 22:25 | NUR ---
ASSUMPTION OF CARE ASSUMED CARE FROM FELIPE CLOUD RN @ 3184. PT ALERT TO SELF. YELLING OUT. IN SBWR WITH 1:1 SITTER, APPROPRIATE AT THIS TIME. VSS. ADLS PERFORMED. PT ASSESSED.
[2023-04-01 02:46] VITALS: BP 142/92
[2023-04-01 03:46] LABS: BASOPHILS ABSOLUTE AUTO 0.08 K/mm3 (0.00-0.23); BASOPHILS PERCENT AUTO 1 % (0-2); EOSINOPHILS ABSOLUTE AUTO 0.09 K/mm3 (0.00-0.68); EOSINOPHILS PERCENT AUTO 1 % (0-6); Hematocrit 40.1 % (33.0-51.0); Hemoglobin 12.5 g/dL (11.5-16.0); IMMATURE GRAN ABSOLUTE AUTO 0.01 K/mm3 (0.00-0.10); IMMATURE GRAN PERCENT AUTO 0 % (0-1); LYMPHOCYTES ABSOLUTE AUTO 0.97 K/mm3 (0.84-5.20); LYMPHOCYTES PERCENT AUTO 15 % (21-46); MONOCYTES ABSOLUTE AUTO 0.37 K/mm3 (0.16-1.47); MONOCYTES PERCENT AUTO 6 % (4-13); Mean Corpuscular HGB 24.8 pg (26.0-34.0); Mean Corpuscular HGB Conc 31.2 g/dL (31.5-36.5); Mean Corpuscular Volume 79 fL (80-100); Mean Platelet Volume 9.2 fL (9.1-12.4); NEUTROPHILS ABSOLUTE AUTO 5.01 K/mm3 (1.96-9.15); NEUTROPHILS PERCENT AUTO 77 % (41-73); Platelet Count 194 K/mm3 (150-400); RDW Coefficient Variation 18.3 % (11.7-14.2); RDW Standard Deviation 52.1 fL (35.1-46.3); Red Blood Cell Count 5.05 M/mm3 (3.80-5.20); White Blood Cell Count 6.53 K/mm3 (4.00-11.30)
[2023-04-01 04:17] LABS: Albumin, Blood 3.4 g/dL (3.4-5.0); Bilirubin, Total 0.4 mg/dL (0.1-1.0); Bun/Creatinine Ratio 24.3 (12.0-20.0); Calcium, Blood 9.1 mg/dL (8.5-10.1); Creatinine, Blood 1.03 mg/dL (0.40-1.00); Globulin, Blood 3.3 g/dL (2.2-4.0); Total Protein, Blood 6.7 g/dL (6.4-8.2)
[2023-04-01 04:30] VITALS: BP 130/108
--- NOTE | 2023-04-01 05:40 | NUR ---
SHIFT SUMMARY POST ACCEPTANCE OF CARE NOTE: PT REMAINS WITH 1:1 SITTER. REQUIRED SBWR UNTIL 0330 TO WHICH PT BECAME MORE WILLING TO LISTEN TO REDIRECTION AND NOT PULLING AT LINES OR TRYING TO GET OOB UNSAFELY. MONITORING FOR NEED TO REAPPLY TO MAINTAIN SAFETY. PT CONTINUES TO MOAN OUT LOUD. STARTED SHIFT WITH PT HR 120'S - 140'S. IT WAS NOTED THAT PATIENT WAS SAFELY SWALLOWING WATER NOW AND THAT SHE HAD NOT BEEN RECEIVING HER HOME DOSE METOPROLOL. ALSO NOTED THAT SHE WAS NOT RECEIVING HER HOME DOSE PERCOCET, TO WHICH PT HAS BEEN CRYING ABOUT PAIN CONTROL THAT HAS NOT BEEN EFFECTIVELY MANAGED WITH IV FENTANYL, BOTH HOME DOSE MEDS REORDEREED TO EXPECTED EFFECT. HR HAS TRENDED DOWN TO 110'S WITH STABLE BP. PAIN SOMEWHAT BETTER PER PATIENT REPORT. PT HAS NOT REQUIRED STRAIGHT CATH THIS SHIFT, VOIDING NCONTINENT, MEASURING ATTENDS FOR ACCURATE I/O'S. OTHERWISE, PT REMAINS ON BR. 1:1 REMAINS AT BEDSIDE.
[2023-04-01 07:44] VITALS: BP 134/95
[2023-04-01] MEDS ORDERED: METF500 PO (08:13)
[2023-04-01] MEDS ORDERED: TIOT18 INH (08:15)
--- NOTE | 2023-04-01 09:40 | NUR ---
ASSUMPTION OF CARE THIS RN ASSUMED CARE AT APPROX 0715. PT ALERT TO SELF ONLY. IRRITABLE, UNCOOPERATIVE WITH CARE AT TIMES. EXPERIENCES EPISODES OF INCREASED AGITATION, REQUIRING REORIENTATION TO UNIT AND SITUATION. SPEECH GARBLED, UNCLEAR AT TIMES. AT TIMES, YELLS LOUDLY "HELP ME." FREQUENTLY PULLS AT CORDS AND DEVICES. CLINICAL SITTER AT BEDSIDE. DURING MORNING MEDICATION ADMINISTRATION, PT BEGAN TO REFUSE PO MEDICATION. PLAN TO ADMINISTER PO DEPAKOTE AND ZOLOFT ONCE PT IS MORE AGREEABLE. VSS. TELEMETRY SHOWING AFIB 110'S-120'S. PO METOPROLOL ADMINISTERED PRIOR TO ASSUMPTION OF CARE BY NIGHT RN. DENIES CHEST PAIN OR PRESSURE. ON ROOM AIR, SATS >90%. VOIDING. INCONTINENT AT TIMES. ATTENDS IN PLACE, CHANGING PRN TO KEEP C/D/I. PT IS CURRENTLY BEDREST DUE TO MENTATION, IS BED MOBILE. REPORTS GENERALIZED HIP PAIN, DECLINED LIDOCAINE PATCH OR PO PAIN MEDICATION. WILL CONTINUE TO MONITOR. CALL LIGHT IN REACH.
--- NOTE | 2023-04-01 11:43 | NUR ---
DR. NGUYEN TO BEDSIDE. DISCONTINUED IV FLUIDS. HOME MED TRAZADONE PO Q8 PRN FOR AGITATION RESTARTED. MEDICAL STATUS NO TELE. 1:1 SITTER AT BEDSIDE. PATIENT YELLING OUT AT TIMES. DAUGHTER GYNA UPDATED, PATIENT ABLE TO SPEAK WITH DAUGHTER ON PHONE.
--- NOTE | 2023-04-01 14:02 | NUR ---
STORY EDITOR FROM [facility]: YOGI US [phone]
--- NOTE | 2023-04-01 14:04 | NUR ---
TRANSFER NOTE STATUS CHANGE TO MEDICAL WITHOUT TELEMETRY. BED AVAILABLE ON MEDICAL UNIT. REPORT GIVEN TO ACCEPTING RN. PT TRANSFERRED TO NEW ROOM VIA HOSPITAL BED. PERSONAL BELONGINGS, CHART, AND MEDICATIONS TRANSFERRED WITH PT.
[2023-04-01 15:56] VITALS: BP 150/122
[2023-04-01 15:57] VITALS: BP 150/122
--- NOTE | 2023-04-01 18:21 | NUR ---
PCU TRANSFER Patient alert & oriented x2, arouses to voice/touch. 1:1 sitter at bedside, patient frequently yelling out, climbing out of bed, sitter able to help redirect and keep safe from falling. Patient frequently crying, inconsulable. IV ABX administred. Meds given in pudding. CBG at dinner 270, SSI administred. Awaiting discharge planning.
[2023-04-01 20:30] VITALS: BP 135/91
--- NOTE | 2023-04-02 00:43 | NUR ---
patient laying down in bed breathing rapidly and only responding minimally compared to the yelling and screaming she had been doing throughout the shift. RT was called and felt it was prudent to obtain ABG's. spoke to hospitalist, and ordered an abg as well as a Portable chest xray. =
[2023-04-02 01:00] LABS: PCO2 Arterial 33.8 mmHg (35-45); PO2 Arterial 59.2 mmHg (80-100); pH Blood Arterial 7.44 (7.35-7.45)
--- NOTE | 2023-04-02 01:52 | NUR ---
NURSE NOTE PT RESTLESS, EPISODE OF DYSPNEA/SOB OCCURRED ARUND 0100, RT ADMINISTERED A BREATHING TREATMENT, BREATHING RESUMED NORMAL PATTERN, PT AGITATED
[2023-04-02 04:38] VITALS: BP 146/106
--- NOTE | 2023-04-02 04:46 | NUR ---
SHIFT SUMMARY ARIELLE WAS AWAKE BUT DROWSY AT START OF SHIFT AND ORIENTED TO SELF. PT HAS 1:1 SITTER, STILL NECESSARY TO PREVENT PATIENT HARM. PATIENT WAS AGITATED TONIGHT AND LABILE. SHE HAD AN EPISODE OF DYSPNEA/ALTERED BREATHING WITHOUT DESATURATION. SHE COMPLAINS OF 10/10 PAIN, MEDICATED PER EMAR. NO OTHER EVENTS THIS SHIFT.
[2023-04-02 05:28] LABS: BASOPHILS ABSOLUTE AUTO 0.11 K/mm3 (0.00-0.23); BASOPHILS PERCENT AUTO 1 % (0-2); EOSINOPHILS ABSOLUTE AUTO 0.04 K/mm3 (0.00-0.68); EOSINOPHILS PERCENT AUTO 1 % (0-6); Hematocrit 38.5 % (33.0-51.0); Hemoglobin 12.1 g/dL (11.5-16.0); IMMATURE GRAN ABSOLUTE AUTO 0.05 K/mm3 (0.00-0.10); IMMATURE GRAN PERCENT AUTO 1 % (0-1); LYMPHOCYTES PERCENT AUTO 14 % (21-46); MONOCYTES ABSOLUTE AUTO 0.56 K/mm3 (0.16-1.47); MONOCYTES PERCENT AUTO 7 % (4-13); Mean Corpuscular HGB 24.9 pg (26.0-34.0); Mean Corpuscular HGB Conc 31.4 g/dL (31.5-36.5); Mean Corpuscular Volume 79 fL (80-100); Mean Platelet Volume 9.4 fL (9.1-12.4); NEUTROPHILS ABSOLUTE AUTO 6.29 K/mm3 (1.96-9.15); NEUTROPHILS PERCENT AUTO 77 % (41-73); Platelet Count 190 K/mm3 (150-400); RDW Coefficient Variation 18.6 % (11.7-14.2); RDW Standard Deviation 53.1 fL (35.1-46.3); Red Blood Cell Count 4.86 M/mm3 (3.80-5.20); White Blood Cell Count 8.15 K/mm3 (4.00-11.30)
[2023-04-02 06:03] LABS: Albumin, Blood 3.4 g/dL (3.4-5.0); Bilirubin, Total 0.5 mg/dL (0.1-1.0); Bun/Creatinine Ratio 16.4 (12.0-20.0); Calcium, Blood 9.4 mg/dL (8.5-10.1); Creatinine, Blood 1.1 mg/dL (0.40-1.00); Globulin, Blood 3.5 g/dL (2.2-4.0); Total Protein, Blood 6.9 g/dL (6.4-8.2)
[2023-04-02 07:47] VITALS: BP 148/100
[2023-04-02 16:18] VITALS: BP 154/82
--- NOTE | 2023-04-02 18:31 | NUR ---
SHIFT SUMMARY- PT IS ALERT, PLESANT AND COOPERATIVE. SHE IS EATING AND DRINKING. SHE HAS A 1:1 SITTER. HER BED IS IN THE LOW POSITION AND CALL LIGHT IS WITHIN REACH. SHE IS RECIEVING IV ABX.
[2023-04-02 19:42] VITALS: BP 142/107
--- NOTE | 2023-04-03 04:06 | NUR ---
SHIFT SUMMARY ARIELLE WAS ALERT AND ORIENTED TO SELF AND PERSON THIS SHIFT. PT WAS AGITATED AND CRYING AT THE START OF SHIFT. 1:[address], PRN MEDS GIVEN FOR PAIN AND AGITATION. NO ACUTE EVENTS THIS SHIFT. BLACK JENA CONSISTENCY STOOLS NOTED. DR. VELAZCO NOTIFIED, ORDERS RECIEVED FOR GUIA, SAMPLE COLLECTED AND SENT TO LAB. HGB NOTED TO BE DROPPING SLOWLY OVER 3 DAYS FROM 14.2 - 12.1 PT IS RESTING IN BED WITH SITTER IN ROOM.
[2023-04-03 05:33] VITALS: BP 138/99
[2023-04-03 05:50] LABS: Stool Occult Blood Guaiac 1 Neg (Neg)
[2023-04-03 06:12] LABS: Albumin, Blood 3.1 g/dL (3.4-5.0); Anion Gap 9 mmol/L (6-16); Blood Urea Nitrogen 17 mg/dL (8-24); Bun/Creatinine Ratio 17.3 (12.0-20.0); CO2, Blood 23 mmol/L (21-32); Calcium, Blood 8.8 mg/dL (8.5-10.1); Chloride, Blood 109 mmol/L (98-108); Creatinine, Blood 0.98 mg/dL (0.40-1.00); Glomerular Filtration Rate 60 (60-); Glucose, Blood 155 mg/dL (70-99); Phosphorus, Blood 2.4 mg/dL (2.5-4.9); Potassium, Blood 3.6 mmol/L (3.5-5.5); Sodium, Blood 141 mmol/L (136-145)
[2023-04-03 07:45] VITALS: BP 148/113
[2023-04-03 16:42] VITALS: BP 134/58
--- NOTE | 2023-04-03 18:14 | NUR ---
SHIFT SUMMARY: PT ORIENTED TO SELF AND PLACE. NO ACUTE EVENTS THIS SHIFT. 1:1 SITTER IN ROOM. PT SLEPT COMFORTABLY MOST OF SHIFT. PT ATTEMPTED TWICE TO PULL OUT IV. REWRAPPED IV AND TOLERATING KEPPRA AND IV ABX. BLACK STOOL STILL NOTED. PT TOLERATED MEDS WHOLE W/. PT ATTEMTED OOB ONCE THIS SHIFT AND RELUCTANT TO GET BACK IN BED DESPITE MULTIPLE ATTEMPTS. HALDOL PROVIDED PER EMAR W/NO OTHER EVENTS AFTER. CALL LIGHT IN REACH. BED IN LOWEST POSITION.
[2023-04-03 19:50] VITALS: BP 121/102
[2023-04-03 19:52] VITALS: BP 138/101
--- NOTE | 2023-04-04 04:05 | NUR ---
SHIFT SUMMARY ARIELLE WAS ALERT AND ORIENTED TO SELF ONLY THIS SHIFT. SHE HAD A MORE RESTFUL NIGHT TONIGHT THAN PREVIOUS, SHE WAS MUCH LESS AGITATED AND SLEPT THROUGH MOST OF THE SHIFT. SHE HAS A 1:1 SITTER IN THE ROOM AT ALL TIMES. HAD SOME DIFFICULTY WITH HER IV LEAKING AT THE PIGTAIL HUB, ISSUE RESOLVED BUT IV IS POSITIONAL. NO ACUTE EVENTS TONIGHT. PT RESTING IN BED AT A LOW POSITION AT THIS TIME.
[2023-04-04 04:15] VITALS: BP 113/61
[2023-04-04 07:22] VITALS: BP 155/82
[2023-04-04 15:59] VITALS: BP 167/98
--- NOTE | 2023-04-04 17:43 | NUR ---
SHIFT SUMMARY: PT ORIENTED TO SELF. STAFF FROM [facility] ARRIVED THIS AM TO REASSESS PT. STATED THEY DO NOT KNOW PT'S ORIGINAL PHYCOLOGICAL BL. PT HAD SITTER UNTIL 1630. PT HAS NOT ACTED OUT OR ATTEMPTED OOB FOR TWO DAYS. BED ALARM ON. PT DOSED WITH HALDOL TWICE THIS SHIFT D/T PULLING LINES. STAFF FROM [facility] STATED PT NEEDS TO NOT HAVE SITTER AT HOSPITAL IF NEEDING TO COME BACK TO FACILITY. PT HAS NOT EATEN THIS SHIFT. TO LETHARGIC FOR AM PO MEDICATIONS. CALL LIGHT IN REACH. BED IN LOWEST POSITION. BED ALARM ON.
[2023-04-04 20:06] VITALS: BP 168/100
--- NOTE | 2023-04-05 03:41 | NUR ---
DRAG CAR RACER SUMMARY BP ELEAVTED PT INTERMITTENTLY AGITATED. PULLING AT LINES, NOT REDIRECTABLE. PLACED IN BILATERAL WRIST RESTRAINTS TO PREVENT PULLING OUT IV LINE. AM SHIFT REPORTED DARK STOOLS, NO BM OF THIS TIME ON THIS SHIFT. HAS BEEN AGITATED, NOT REDIRECTABLE. MEDS GIVEN BUT STILL AGITATED. MULTIPLE ATTEMPTS TO REDIRECT. ROOM DARKENED, STIMULI DECREASED. CALL LIGHT IN REACH. WILL CONTINUE TO MONITOR.
[2023-04-05 04:42] VITALS: BP 150/89
[2023-04-05 07:21] VITALS: BP 171/90
--- NOTE | 2023-04-05 11:06 | NUR ---
Spoke with Dr Mosher, RN Custom Bow Maker Rubi and discussed case. Family may benefit from goals of care conversation and completing POLST. Pt resting in bed and is A&OXX1/2. Pt knows she is in a hospital but states she is at [facility]. Pt does not know reason for hospital stay but does state correct year. Pt not very engaging in conversation. Pt does complain of pain in bilateral hips. Spoke with Primary RN Jose and discussed case. Pt requires assistance with bathing, dressing, transfers, ambulation, feeding, and is incontinent. Pt has had poor appetite although she did eat more of her breakfast today. Called and spoke with Pt's daughter Myrna. Provided update and reviewed plan of care. Engaged in therapeutic conversations regarding goals of care. Offered therapeutic listening as Gyna reports seeing a significant decline in Pt's health over the last month. She also reports Pt's quality of life has greatly diminished since losing her . Educated on disease process including trajectory. Discussed options including maintaining current plan of care and considering hospice/comfort care. Educated on comfort care and hospice philosophy. Offered therapeutic listening and answered questions. Gyna reports Pt's wishes are to focus on comfort care and is agreeable to complete POLST over the phone to reflect these wishes. Completed POLST over speaker phone with RN Aicha Gandara as witness. Discuss hospice agencies with daughter reporting no preference. Daughter expresses apprectiation and reports no other concerns at this time. She does report plan to speak with her sister to determine if they want to continue Pt's insulin and blood sugar checks. Spoke with Dr Mosher and discussed case. Dr Mosher will place comfort care order and will continue some maintenance medications for comfort and will D/C others. Spoke with RN Custom Bow Maker and discussed case. Palliative Care will remain available
--- NOTE | 2023-04-05 18:16 | NUR ---
SHIFT SUMMARY: PT A&O X1-2. PT ON RESTRAINTS THIS AM. PT TRANSITIONED TO COMFORT CARE THIS SHIFT. RESTRAINTS AND IV REMOVED. PT HAS NOT ATTEMPTED OOB. CALLED OUT A COUPLE TIMES FOR "NATALIE." PT IS PLEASANT WHEN STAFF WALKS INTO ROOM AND IS EASILY REDIRECTABLE. FACILITY UNABLE TO TAKE PT BACK AT THIS TIME DESPITE BEING TRANSITIONED TO COMFORT CARE. APPRECIATE CARE MANAGEMENT INPUT ON MATTER. PT IS EATING MUCH BETTER TODAY THAN PREVIOUSLY. MEDICATED PT PER EMAR FOR HIP PAIN. PT C/O NAUSEA ONCE THIS SHIFT. ROTATING Q2 AND TOLERATING WELL. CALL LIGHT IN REACH. BED IN LOWST POSITION. BED ALARM ON.
--- NOTE | 2023-04-06 05:29 | NUR ---
SHIFT SUMMARY: PT IS ADMITTED FOR UTI AND IS A DNR. IS ALERT AND ABLE TO MAKE SOME NEEDS KNOWN. CONFUSION NOTED OFF AND ON THROUGH SHIFT SHOWN BY CALLING OUT FOR PEOPLE THAT ARE NOT PRESENT. ALSO NOTED TO BE TEARFUL AT TIMES AND WHEN ASKED ABOUT WHAT WAS GOING ON SHE WOULD NOT EXPRESS ANYTHING AND STOP CRYING. WHEN STAFF WOULD LEAVE THE ROOM SHE WOULD RESUME CRYING. WHEN ASKED ABOUT PAIN OR DISCOMFORT SHE WOULD DENY ANY. WAS INFORMED BY OFF GOING NURSE PENDING HOSPICE CONSULT. ADL S HAVE BEEN 2P MOD FOR MOST ACTIVITIES. RESIDENT DID NOT GET OUT OF BED THIS SHIFT.
--- NOTE | 2023-04-06 17:29 | NUR ---
SHIFT SUMMARY PATIENT RESTLESS AT TIMES. WHEN RESTLESS, PATIENT STATES SHE IS HAVING BACK PAIN. PATIENT MEDICATED PER MAR ABLE. PATIENT RESTING EACH TIME AFTER PAIN MEDS. ALEXIA HAD ONE EPISODE OF CRYING. PATIENT STATES THAT SHE MISSES HER . PRN SEROQUEL GIVEN FOR ANXIETY AND RESTLESSNESS WITH GOOD RESULTS. CASE MANAGEMENT CONTINUES TO WORK ON DISCHARGE PLAN.
[2023-04-06 19:44] VITALS: BP 130/73
[2023-04-07 02:39] VITALS: BP 151/98
--- NOTE | 2023-04-07 04:11 | NUR ---
SHIFT SUMMARY ARIELLE WAS SOMULENT AND ORIENTED X 0 AT THE START OF SHIFT. SHE WAS UNABLE TO FOLLOW INSTRUCTION AND TAKE 2100 MEDS. NO ACUTE EVENTS TONIGHT. PT WOKE UP MORE AROUND 0300 AND WAS ALERT AND IN PAIN. SHE WAS ABLE TO SWALLOW A PAIN MED. NO IV ACCESS AT THIS TIME, ORDERS STATE THAT IV CAN BE LEFT OUT IF NOT NEEDED. PT RESTING IN BED AT A LOW POSITION WITH THE CALL LIGHT IN REACH AND BED ALARM PLACED.
[2023-04-07 07:08] VITALS: BP 163/93
--- NOTE | 2023-04-07 13:50 | NUR ---
Comfort Care Visit Pt resting in bed and is intermittently opening her eyes. Pt does not engage in conversation. Offered brief supportive visit. Pt appears comfortable with no S/S of distress at this time. Palliative Care will remain available
[2023-04-07 15:10] VITALS: BP 139/92
--- NOTE | 2023-04-07 18:13 | NUR ---
SHIFT SUMMARY PT AXO TO SELF ONLY. PT FIXATES ON A TOPIC AND DOES NOT REDIRECT. PT MEDICATED FOR AGGITATION AND PAIN PER EMAR. ON COMFORT CARE. VSS. NO IV IN PLACE. BED IN LOW POSITION, BED ALARM ON, CALL LIGHT WITHIN REACH. NO ACUTE CHANGES THIS SHIFT. PT UP WITH 2 ASSIST, FWW, AND GB. PT ABLE TO VOID IN BSC.
[2023-04-07 19:48] VITALS: BP 128/96
--- NOTE | 2023-04-08 04:19 | NUR ---
SHIFT SUMMARY ARIELLE WAS ALERT AND ORIENTED X 0 AT START OF SHIFT. SHE WAS AWAKE THROUGH MOST OF THE NIGHT WITH AGITATION AND PAIN, AGITATION ESCALATED AROUND 0300. ZYPREXA ADMINISTERED WITH GOOD THERAPEUTIC EFFECT. NO ACUTE EVENTS TODAY OR NOTABLE CHANGES IN CONDITION. PT IS RESTING IN BED WITH THE BED ALARM IN PLACE
[2023-04-08 08:54] VITALS: BP 151/78
--- NOTE | 2023-04-08 16:30 | NUR ---
SHIFT SUMMARY: PATIENT IS AWAKE, ALERT AND ORIENTED TO SELF ONLY. CONFUSED AND ANXIOUS AT TIMES. PATIENT ON COMFORT CARE MEASURES. PATIENT REPORTS PAIN TO LOWER BACK, MEDICATED c PRN PAIN AND COMFORT CARE MEDS PER EMAR c GOOD EFFECT. PATIENT DENIES SOB. RR IS EVEN AND UNLABORED. PATIENT IS EATING AND DRINKING WELL c ASSISTANCE. PATIENT IS INCONTINENCE OF BLADDER, PABLO CARE AND ATTENDS CHANGED PRN. NO VITAL SIGNS AND BS CHECKED NEEDED PER DR. TY. BED ALARM ON FOR SAFETY. CALL LIGHT IN REACH.
--- NOTE | 2023-04-09 06:47 | NUR ---
SHIFT SUMMARY PT LAYING IN BED DURING BEDSIDE ROUNDS, MEDICATED PT WITH SEROQUEL TO HELP DECREASE PT YELLING OUT AND ATTEMPTING TO PUT HER LEGS OUT OF BED, PT'S DAUGHTER NATALIE CALLED AND TALKED TO PT ON THE PHONE- PT ABLE TO TALK WITH HER- PT CONTINUED TO YELL OUT AND CRY - GAVE XYPREXA IM- PT CALMED DOWN AND STOPPED ATTEMPTING TO GET OUT OF BED, PT CONTINUES TO SCREAM OUT THAT SHE WAS PAINFUL IN THE NIGHT- MEDICATED X2 WITH PAIN MED PRN, PT REPOSITIONED Q2 AND BRIEF CHANGES DONE - PT INCONTIENT OF URINE- BED LOW POSITION, CALL LIGHT WITHIN REACH, BED ALARM IN PLACE
--- NOTE | 2023-04-09 17:34 | NUR ---
SHIFT SUMMARY: NO NEW ACUTE CHANGES IN PATIENT CONDITION THIS SHIFT. PATIENT ON COMFORT CARE MEASURES. PATIENT IS AWAKE, ALERT AND ORIENTED TO SELF ONLY. ANXIOUS AND YELLS OUT SOMETIMES. RECEIVED PRN COMFORT CARE MEDS PER EMAR. PATIENT HAD BEBBATH AND LINEN CHANGED, INCONTINENCE OF BLADDER, PABLO CARE, ATTENDS CHANGED AND REPOSITIONED T/O SHIFT. FEEDER AND TOLERATING PO INTAKE WELL. BED ALARM ON FOR SAFETY. CALL LIGHT IN REACH.
--- NOTE | 2023-04-10 19:21 | NUR ---
SHIFT SUMMARY PT ON COMFORT CARE. PT HAS BEEN SLEEPING T/O THE DAY WITH PERIODS OF CRYING OUT IN PAIN. PT AROUSING TO PAIN WITH SOME BRIEF MOMENTS OF WAKEFULNESS T/O THE DAY. WHEN AWAKE PT NOT FOLLOWING COMMANDS OR ABLE TO RESPOND TO QUESTIONS. DAUGHTER, NATALIE CALLED THIS MORNING--SHE IS FLYING IN AND WILL BE HERE THIS EVENING. PT UNABLE TO TAKE ORAL MEDS TODAY. PT UNABLE TO TAKE IN FLUID OR FOOD TODAY EXCEPT FOR A FEW SIPS OF WATER. SUCTION SET UP. PT MED PER AUG. AUDIBLE RATTLE DEVELOPING BY END OF SHIFT.
--- NOTE | 2023-04-11 03:53 | NUR ---
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 UNABLE TO GIVE PO MEDS DUE TO LETHARGY AND UNRESPONSIVENESS. PT HAD INCREASED SECRETIONS, NOTIFIED VIKTOR VELAZCO, NOTIFIED TO REQUEST PRN ATROPINE AND SCOPALAMINE PATCH. PTS DAUGHTER FROM [place] AND [facility] ARRIVED AT BEDSIDE. AT 0255 TIME OF PRONOUNCED BY TWO RNS (MYSELF AND ENEDINA MIMS RN).
--- NOTE | 2023-04-11 07:55 | NUR ---
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 Continue poc.
--- NOTE | 2023-04-11 08:49 | NUR ---
[facility] PT REMAINS TRANSFERED TO [facility]. FAMILY IN ATTENANCE
== END 2023-04-11 02:55 | DRG 871 ==
LOC: ER 13:29 → PCU 13:30 → MEDS 03-31 09:46 → ICUE 03-31 09:46 → PCU 03-31 09:46 → ICUE 03-31 11:30 → PCU 03-31 21:43 → MEDS 04-01 14:04
PROVIDERS: Family Medicine; Internal Medicine; Nurse Practitioner Acute Care; Physician Assistant; ADMIT Student in an Organized Health Care Education/Training Program
PROC: 3E03329 Introduction of Other Anti-infective into Peripheral Vein, Percutaneous Approach (ICD-10-PCS; principal; 2023-03-30)
PROC: 4A133R1 Monitoring of Arterial Saturation, Peripheral, Percutaneous Approach (ICD-10-PCS; 2023-04-02)
DX: A41.9 Sepsis, unspecified organism (principal); G92.8 Other toxic encephalopathy; R65.21 Severe sepsis with septic shock; N39.0 Urinary tract infection, site not specified; N17.9 Acute kidney failure, unspecified; I50.32 Chronic diastolic (congestive) heart failure; Z51.5 Encounter for palliative care; Z66 Do not resuscitate; F03.911 Unspecified dementia, unspecified severity, with agitation; F05 Delirium due to known physiological condition; I48.92 Unspecified atrial flutter; B96.20 Unspecified Escherichia coli [E. coli] as the cause of diseases classified elsewhere; E11.22 Type 2 diabetes mellitus with diabetic chronic kidney disease; I25.10 Atherosclerotic heart disease of native coronary artery without angina pectoris; E78.5 Hyperlipidemia, unspecified; G89.4 Chronic pain syndrome; M54.50 Low back pain, unspecified; K21.9 Gastro-esophageal reflux disease without esophagitis; I48.0 Paroxysmal atrial fibrillation; N18.32 Chronic kidney disease, stage 3b; E86.0 Dehydration; J44.9 Chronic obstructive pulmonary disease, unspecified; G40.909 Epilepsy, unspecified, not intractable, without status epilepticus; Z88.8 Allergy status to other drugs, medicaments and biological substances; Z79.01 Long term (current) use of anticoagulants; Z79.4 Long term (current) use of insulin; Z79.891 Long term (current) use of opiate analgesic; Z11.52 Encounter for screening for COVID-19; Z78.1 Physical restraint status
CPT/HCPCS: 36415; 36600; 51701; 71045; 80048; 80053; 80069; 81001; 82272; 82803; 82947; 83605; 85025; 87040; 87077; 87086; 87186; 94640; 94664; 94760; 96361; 96365; 96367; 96372; 96375; 96376; 99285-25; A9270; G0378; J0295; J0690; J0696; J1170; J1630; J1650; J1815; J1953; J2310; J3010; J7030; J7040; U0002